=== PATIENT | male | born 1980 | race African-American/Black ===

== ENCOUNTER 2018-06-25 05:45 | Emergency (ER) | payer MEDICAID ==
[~2018-06-25] VITALS: Ht 182.9 cm; Wt 72.0 kg
[2018-06-25] MEDS ORDERED: NYSTATIN 100,000 UNITS/ML 5ML UDC SSW ONE (06:30)
[2018-06-25] MEDS ORDERED: SODIUM CHLORIDE 0.9% 1,000 ML IV ONE (06:30)
[2018-06-25] MEDS ORDERED: FLUCONAZOLE 100MG TABLET PO ONE (07:15)
[2018-06-25] MEDS ORDERED: ONDANSETRON HCL 4MG/2ML INJ IV ONE (07:30)
[2018-06-25 07:43] LABS: BASOPHILS % 0.7 % (0.0-2.0); EOSINOPHILS % 5.7 % (0.0-5.0); HEMATOCRIT. 49.1 % (42.0-52.0); HEMOGLOBIN. 16.8 g/dL (14.0-18.0); LYMPHOCYTES % 21.5 % (20.0-50.0); MEAN CORPUSCULAR HEMOGLOBIN 31.1 pg (28.0-32.0); MEAN CORPUSCULAR VOLUME 90.8 fL (80.0-94.0); MEAN PLATELET VOLUME 8.9 fl (7.4-10.4); MONOCYTES % 12.5 % (2.0-8.0); NEUTROPHILS % 59.6 % (40.0-76.0); PLATELET 271 x1000/uL (130-400); RED BLOOD CELL COUNT 5.41 mill/uL (4.7-6.1); RED CELL DISTRIBUTION WIDTH 13.9 % (11.6-14.6)
[2018-06-25 07:44] LABS: CHLORIDE 104 mEq/L (98-107)
[2018-06-25 07:46] LABS: CLARITY URINE CLEAR (CLEAR); COLOR URINE YELLOW (YELLOW); KETONES URINE NEGATIVE (NEGATIVE); LEUKOCYTE ESTERASE URINE 2+ (NEGATIVE); NITRITE URINE NEGATIVE (NEGATIVE); OCCULT BLOOD URINE NEGATIVE (NEGATIVE); PROTEIN URINE NEGATIVE (NEGATIVE); SPECIFIC GRAVITY URINE 1.024 (1.005-1.030)
[2018-06-25] MEDS ORDERED: ACETAMINOPHEN 325MG TABLET PO ONE (08:30)
[2018-06-25 09:08] LABS: *AMPHETAMINES SCREEN URINE PRESUMTIVE POSITIVE (NEGATIVE); *BARBITURATES SCREEN URINE NEGATIVE (NEGATIVE); *BENZODIAZEPINES SCREEN URINE NEGATIVE (NEGATIVE); *COCAINE SCREEN URINE NEGATIVE (NEGATIVE); CANNABINOID URINE SCREEN PRESUMTIVE POSITIVE (NEGATIVE); METHADONE URINE SCREEN NEGATIVE (NEGATIVE); OPIATES URINE SCREEN NEGATIVE (NEGATIVE); PHENCYCLIDINE URINE SCREEN NEGATIVE (NEGATIVE)
[2018-06-25 11:26] VITALS: BP 122/84
[2018-06-27 09:06] LABS: ABSOLUTE EOSINOPHILS 0.2 x10E3/uL (0.0-0.4); ABSOLUTE MONOCYTES 0.6 x10E3/uL (0.1-0.9); ABSOLUTE NEUTROPHILS 1.7 x10E3/uL (1.4-7.0); BASOPHILS 1 % (Not Estab.); HEMATOCRIT 46.9 % (37.5-51.0); HEMOGLOBIN 15.9 g/dL (13.0-17.7); IMMATURE GRANULOCYTES 0 % (Not Estab.); LYMPHOCYTES 30 % (Not Estab.); MEAN CORPUSCULAR HGB CONC. 33.9 g/dL (31.5-35.7); MEAN CORPUSCULAR VOLUME 91 fL (79-97); MONOCYTES 16 % (Not Estab.); NEUTROPHILS 49 % (Not Estab.); PLATELETS 295 x10E3/uL (150-379); RBC 5.13 x10E6/uL (4.14-5.80); RED CELL DISTRIBUTION WIDTH 15.2 % (12.3-15.4); WBC 3.5 x10E3/uL (3.4-10.8)
[2018-06-27 13:06] LABS: % CD 3 POS. LYMPHOCYTES 63.8 % (57.5-86.2); % CD 4 POS. LYMPHOCYTES 3.4 % (30.8-58.5); % CD 8 POS. LYMPH 59.3 % (12.0-35.5); ABSOLUTE CD 3 638 /uL (622-2402); ABSOLUTE CD 4 HELPER 34 /uL (359-1519); ABSOLUTE CD 8 SUPPRESSOR 593 /uL (109-897); CD4/CD8 RATIO 0.06 (0.92-3.72)
== END 2018-06-25 11:27 | disposition home or self-care (01) ==
LOC: ER 05:45
DX: R05 Cough (principal); R19.7 Diarrhea, unspecified; R11.2 Nausea with vomiting, unspecified; F17.200 Nicotine dependence, unspecified, uncomplicated; Z98.890 Other specified postprocedural states
CPT/HCPCS: 36415; 71045; 80053; 80305; 81003; 83690; 85025; 86359; 86360; 87086; 87804; 96361; 96374; 99285; J2405; J7030